=== PATIENT | male | born 1975 | race Caucasian/White ===

== ENCOUNTER 2020-04-18 09:06 | Emergency (ER) | payer BC, SELFPAY ==
[2020-04-18 09:16] VITALS: BP 143/104; PULSE 108; RESP 18; TEMP 36.9; O2SAT 98; BMI 34.8
[2020-04-18 09:33] VITALS: BP 137/103; PULSE 104; RESP 20; O2SAT 97
--- NOTE | 2020-04-18 09:37 | XR_ITS ---
WS: [id number] PORTABLE CHEST HISTORY: blood clot leg?, leg right COMPARISON: 12/26/2017 Lungs are clear and well expanded. No pleural effusion or pneumothorax. Cardiac size: Normal. Mediastinum/Aorta: Normal mediastinum. No osseous abnormality seen. XR/XR chest 1V portable [id number] IMPRESSION: Unremarkable portable chest.
--- NOTE | 2020-04-18 09:39 | ED_ITS ---
Documented by User: DAMIEN Grubbs 04/18/20 09:40 HPI - Extremity Problem General: Chief complaint: Extremity Problem,Nontraumatic Stated complaint: R LEG PAIN Time Seen by Provider: 04/18/20 09:08 History of Present Illness: HPI Narrative: Patient presents to the ER with swelling in his right leg started in his calf now moved him to his right thigh started 4 days ago. Had been sedentary around Covid quarantine now off quar antine tested positive couple weeks ago. Denies any other problems denies any medication usage MD Complaint: extremity swelling Onset (ago): day(s) Pain Consistency: constant Location: right Severity scale (1-10): 6 Quality: aching Radiation: proximal Relieving factors: nothing Exacerbating factors: range of motion and weight bearing Associated symptoms: Reports no associated symptoms; Deny chest pain, fever(s) or rash Context: other (Recent positive Covid) Review of Systems Const: Denies: fever(s), chills or body aches Eyes: Denies: change in vision or blurry vision ENMT: Denies: throat pain or nasal congestion Card: Denies: chest pain or dyspnea on exertion Resp: Denies: dyspnea, productive cough or non-productive cough GI: Denies: abdominal pain, nausea or vomiting : Denies: difficulty urinating Musc: Reports: extremity pain and extremity swelling (Right leg) Skin/Breast: Denies: rash Neuro: Denies: headache(s) Psych: Denies: anxiety or depression Allen/Lymph: Denies: easy bruising Physical Exam Const: COMMON NORMALS: no acute distress, average body habitus and patient oriented x3 HENMT: COMMON NORMALS: normocephalic HEAD & SCALP: normal to inspection and normocephalic FACE & SINUS: normal facial exam Eye: COMMON NORMALS: conjunctivae normal GENERAL EYE: appearance normal, both eyes and all related structures CONJUNCTIVA: Yes conjunctivae normal Neck/C-Spine: COMMON NORMALS: no JVD Chest: COMMONS NORMALS: normal inspection of the chest Resp: COMMON NORMALS: normal respiratory effort and clear to auscultation bilaterally AUSCULTATION: clear to auscultation bilaterally Cardio: COMMON NORMALS: no JVD, regular rate and regular rhythm RATE: regular rate RHYTHM: regular rhythm GI: COMMON NORMALS: Normal to inspection, nondistended, normoactive bowel sounds present Extremity: COMMON NORMALS: full ROM RIGHT LOWER EXTREMITY: Yes upper leg (Redness and swelling inner thigh extending all the way up to the groin area) a nd Yes lower leg (Redness and swelling positive Homans test) Neuro: COMMON NORMALS: patient oriented x3 Course Vital Signs: Vital signs: Vital Signs Temperature 97.8 F 04/18/20 13:11 Pulse Rate 75 04/18/20 13:11 Respiratory Rate 16 04/18/20 13:11 Blood Pressure 146/78 04/18/20 13:11 Pulse Oximetry 96 04/18/20 13:11 MDM - Extremity (Nontraumatic) Lab Data: Labs: Lab Results 04/18/20 04/18/20 04/18/20 Range/Units 09:45 09:45 09:45 WBC 6.8 (4.0-10.0) 10^3/ uL RBC 5.45 H (4.1-5.3) 10^6/u L Hgb 15.5 (11.7-16.6) g/dL Hct 48.5 (42.0-52.0) % MCV 89.0 (80-94) fL MCH 28.4 (28.0-34.0) pg MCHC 32.0 (30.0-36.0) g/dL RDW 12.5 (12.1-15.1) % Plt Count 280 (130-400) 10^3/c mm MPV 10.0 (7.4-10.4) fL Neut % (Auto) 84.0 % Lymph % (Auto) 5.7 % Pacific % (Auto) 8.7 % Eos % (Auto) 1.0 % Baso % (Auto) 0.3 % Neut # (Auto) 5.72 (1.8-7.7) 10^3/u L Lymph # (Auto) 0.4 L (0.8-4.8) 10^3/u L Pacific # (Auto) 0.6 (0.2-0.9) 10^3/u L Eos # (Auto) 0.1 (0.0-0.8) 10^3/u L Baso # (Auto) 0.0 (0.0-0.1) 10^3/u L Nucleated RBC % (a uto) 0 % Nucleated RBCs # 0.0 /100WBC PT 12.40 (12.1-14.9) SECO NDS INR 0.90 (0.8-1.2) Sodium 139 (136-145) mmol/L Potassium 4.3 (3.5-5.1) mmol/L Chloride 103 (98-107) mmol/L Carbon Dioxide 24 (22-29) mmol/L Anion Gap 16.3 (5-19) BUN 8 (6-20) mg/dL Creatinine 0.9 (0.7-1.2) mg/dL GFR Calculation 91.7 (90-130) mL/min Glucose 103 (65-115) mg/dL Calculated Osmolal ity 287 (285-295) mOsm/k g Lactate (0.5-2.2) mmol/L Calcium 9.2 (8.5-10.5) mg/dL Total Bilirubin 0.3 (0.15-1.2) mg/dL AST 20 (0-40) U/L ALT 22 (0-41) U/L Alkaline Phosphata se 78 (40-130) IU/L Troponin T Gen 5 n g/L (0-15) ng/L NT-Pro-B Natriuret Pep (0-125) pg/mL Total Protein 7.1 (6.6-8.7) g/dL Albumin 4.1 (3.5-5.2) g/dL Globulin 3.0 (1.3-4.6) g/dL 04/18/20 04/18/20 04/18/20 Range/Units 09:45 09:45 09:45 WBC (4.0-10.0) 10^3/ uL RBC (4.1-5.3) 10^6/u L Hgb (11.7-16.6) g/dL Hct (42.0-52.0) % MCV (80-94) fL MCH (28.0-34.0) pg MCHC (30.0-36.0) g/dL RDW (12.1-15.1) % Plt Count (130-400) 10^3/c mm MPV (7.4-10.4) fL Neut % (Auto) % Lymph % (Auto) % Pacific % (Auto) % Eos % (Auto) % Baso % (Auto) % Neut # (Auto) (1.8-7.7) 10^3/u L Lymph # (Auto) (0.8-4.8) 10^3/u L Pacific # (Auto) (0.2-0.9) 10^3/u L Eos # (Auto) (0.0-0.8) 10^3/u L Baso # (Auto) (0.0-0.1) 10^3/u L Nucleated RBC % (a uto) % Nucleated RBCs # /100WBC PT (12.1-14.9) SECO NDS INR (0.8-1.2) Sodium (136-145) mmol/L Potassium (3.5-5.1) mmol/L Chloride (98-107) mmol/L Carbon Dioxide (22-29) mmol/L Anion Gap (5-19) BUN (6-20) mg/dL Creatinine (0.7-1.2) mg/dL GFR Calculation (90-130) mL/min Glucose (65-115) mg/dL Calculated Osmolal ity (285-295) mOsm/k g Lactate 1.2 (0.5-2.2) mmol/L Calcium (8.5-10.5) mg/dL Total Bilirubin (0.15-1.2) mg/dL AST (0-40) U/L ALT (0-41) U/L Alkaline Phosphata se (40-130) IU/L Troponin T Gen 5 n g/L 6 (0-15) ng/L NT-Pro-B Natriuret Pep 20 (0-125) pg/mL Total Protein (6.6-8.7) g/dL Albumin (3.5-5.2) g/dL Globulin (1.3-4.6) g/dL Discharge Plan Discharge Patient Disposition: Home Clinical Impression: Superficial thrombophlebitis Qualifiers: Superficial thrombophlebitis-Involved body area: lower extremity Laterality: right Qualified Code(s): I80.01 - Phlebitis and thrombophlebitis of superficial vessels of right lower extremity Condition: Stable Prescriptions: New Eliquis DVT-PE Treat 30D Start 5 mg (74 tabs) tablets,dose pack See Rx Instructions .ROUTE .COMPLEX Qty: 74 RF: 0 Discharge Orders: Discharge Order (Routine); Ordered 04/18/20 Ordered By: Ying Mcguire Referrals: Abimael Graham MD [Physician] - 4-7 days Discharge Diet: Usual diet Discharge Activity: Limit activity as instructed Patient Instructions: Deep Venous Thrombosis (ED) Activity Restrictions/Additional Instructions: Please return to the ER immediately for any of the signs or symptoms listed on your discharge instruction sheets, worsening/changing of your symptoms, you are not getting better as quickly as expected, or for ANY other cause or concerns. Begin your Eliquis tonight at 6 PM as instructed. If you develop chest pain, shortness of breath, increased pain, fever or vomiting please return to the ER for recheck. Be certain to follow-up with Dr. Graham for recheck Tuesday of next week. Discharge Date/Time: 04/18/20 13:13 Sign Out Sign Out Data: Patient Sign Out occurred on 04/18/20 at 11:07. Patient's care was discussed, and care was transferred from to Ying Mcguire. Coding Level of Care Code ED Food Service Director for Chg Fwd Exam Comprehensive Documented by User: Ying Mcguire 04/18/20 22:42 HPI - Extremity Problem General: Chief complaint: Extremity Problem,Nontraumatic Stated complaint: R LEG PAIN Time Seen by Provider: 04/18/20 09:08 Course Vital Signs: Vital signs: Vital Signs Temperature 97.8 F 04/18/20 13:11 Pulse Rate 75 04/18/20 13:11 Respiratory Rate 16 04/18/20 13:11 Blood Pressure 146/78 04/18/20 13:11 Pulse Oximetry 96 04/18/20 13:11 MDM - Extremity (Nontraumatic) MDM Narrative: Medical decision making narrative: 1100 -patient's case endorsed to me from Ricky Greenwood APN. Please see his note for his history, physical exam and medical decision-making notes. Concern of DVT based upon ultrasound techs verbal report given to Mr. Greenwood. Patient is mildly tachycardic so we will proceed with evaluation for PE. 1256 -the case was reviewed with Drs. Garza and Santos. Both are in agreement as the patient has had Covid which can create hypercoagulable state, history of superficial venous thrombosis at the same site and the clot is about to spill into the deep venous system they agree the patient should be placed on anticoagulation. Patient received 4000 units of heparin here so after discussing with pharmacy they recommend starting Eliquis tonight at 6 PM. Hospital protocol started dose was initiated the patient understands he needs to take this as directed. We did review the signs and symptoms for which to return and he states he understands all these and will follow-up as directed return as needed. Lab Data: Attestation: I reviewed the patient's lab results. Labs: Lab Results 04/18/20 04/18/20 04/18/20 Range/Units 09:45 09:45 09:45 WBC 6.8 (4.0-10.0) 10^3/ uL RBC 5.45 H (4.1-5.3) 10^6/u L Hgb 15.5 (11.7-16.6) g/dL Hct 48.5 (42.0-52.0) % MCV 89.0 (80-94) fL MCH 28.4 (28.0-34.0) pg MCHC 32.0 (30.0-36.0) g/dL RDW 12.5 (12.1-15.1) % Plt Count 280 (130-400) 10^3/c mm MPV 10.0 (7.4-10.4) fL Neut % (Auto) 84.0 % Lymph % (Auto) 5.7 % Pacific % (Auto) 8.7 % Eos % (Auto) 1.0 % Baso % (Auto) 0.3 % Neut # (Auto) 5.72 (1.8-7.7) 10^3/u L Lymph # (Auto) 0.4 L (0.8-4.8) 10^3/u L Pacific # (Auto) 0.6 (0.2-0.9) 10^3/u L Eos # (Auto) 0.1 (0.0-0.8) 10^3/u L Baso # (Auto) 0.0 (0.0-0.1) 10^3/u L Nucleated RBC % (a uto) 0 % Nucleated RBCs # 0.0 /100WBC PT 12.40 (12.1-14.9) SECO NDS INR 0.90 (0.8-1.2) Sodium 139 (136-145) mmol/L Potassium 4.3 (3.5-5.1) mmol/L Chloride 103 (98-107) mmol/L Carbon Dioxide 24 (22-29) mmol/L Anion Gap 16.3 (5-19) BUN 8 (6-20) mg/dL Creatinine 0.9 (0.7-1.2) mg/dL GFR Calculation 91.7 (90-130) mL/min Glucose 103 (65-115) mg/dL Calculated Osmolal ity 287 (285-295) mOsm/k g Lactate (0.5-2.2) mmol/L Calcium 9.2 (8.5-10.5) mg/dL Total Bilirubin 0.3 (0.15-1.2) mg/dL AST 20 (0-40) U/L ALT 22 (0-41) U/L Alkaline Phosphata se 78 (40-130) IU/L Troponin T Gen 5 n g/L (0-15) ng/L NT-Pro-B Natriuret Pep (0-125) pg/mL Total Protein 7.1 (6.6-8.7) g/dL Albumin 4.1 (3.5-5.2) g/dL Globulin 3.0 (1.3-4.6) g/dL 04/18/20 04/18/20 04/18/20 Range/Units 09:45 09:45 09:45 WBC (4.0-10.0) 10^3/ uL RBC (4.1-5.3) 10^6/u L Hgb (11.7-16.6) g/dL Hct (42.0-52.0) % MCV (80-94) fL MCH (28.0-34.0) pg MCHC (30.0-36.0) g/dL RDW (12.1-15.1) % Plt Count (130-400) 10^3/c mm MPV (7.4-10.4) fL Neut % (Auto) % Lymph % (Auto) % Pacific % (Auto) % Eos % (Auto) % Baso % (Auto) % Neut # (Auto) (1.8-7.7) 10^3/u L Lymph # (Auto) (0.8-4.8) 10^3/u L Pacific # (Auto) (0.2-0.9) 10^3/u L Eos # (Auto) (0.0-0.8) 10^3/u L Baso # (Auto) (0.0-0.1) 10^3/u L Nucleated RBC % (a uto) % Nucleated RBCs # /100WBC PT (12.1-14.9) SECO NDS INR (0.8-1.2) Sodium (136-145) mmol/L Potassium (3.5-5.1) mmol/L Chloride (98-107) mmol/L Carbon Dioxide (22-29) mmol/L Anion Gap (5-19) BUN (6-20) mg/dL Creatinine (0.7-1.2) mg/dL GFR Calculation (90-130) mL/min Glucose (65-115) mg/dL Calculated Osmolal ity (285-295) mOsm/k g Lactate 1.2 (0.5-2.2) mmol/L Calcium (8.5-10.5) mg/dL Total Bilirubin (0.15-1.2) mg/dL AST (0-40) U/L ALT (0-41) U/L Alkaline Phosphata se (40-130) IU/L Troponin T Gen 5 n g/L 6 (0-15) ng/L NT-Pro-B Natriuret Pep 20 (0-125) pg/mL Total Protein (6.6-8.7) g/dL Albumin (3.5-5.2) g/dL Globulin (1.3-4.6) g/dL Imaging Data^: CXR: Attestation: I personally reviewed and interpreted this imaging study as follows: My impression: No acute cardiopulmonary findings. US Vascular: Radiologist's impression: [address] [address] Ultrasound Report Signed Patient: Teena Arceo #: [id number] : 1975Acct#:[id number] Age/Sex: 45 / MADM Date: 04/18/20 Loc: ERRoom/Bed: Attending Dr: Ordering Provider/Ordering MD: Nahomy Greenwood , SERVICENOW ADMINISTRATOR- Date of Service: 04/18/20 Procedure(s): [place] [id number] Accession Number(s): [id number] Report Number: [id number] Raudel Arceo Age: 45 Gender: M : 1975 Exam Date: 04/18/2020 10:32 Ordering Phys: Marvin GreenwoodP Technologist: Richard Al Exam Location: [facility] – [place] Indication: PAIN SWELLING HISTORY: Patient states he had covid a few weeks ago and was laid up in bed. He is usually a very active individual. PROCEDURES: Comparison:. 11/27/14. Venous duplex imaging was performed in only the right lower extremity. The following venous structures were evaluated: common femoral vein, profunda vein, proximal portion of the greater saphenous vein, superficial femoral vein, and the popliteal vein. In addition, the posterior tibial and peroneal trunk were evaluated. Serial compression, augmentation maneuvers, and spectral Doppler flow evaluation were performed. FINDINGS: Thrombus was noted throughout the entire length of the right GSV. Thrombus is partially contracted. The thrombus appears to be very close to entering into the right common femoral vein. No DVT on the right. CONCLUSIONS Acute and possibly subacute right lower extremity superficial vein thrombosis. No DVT. Dr. Patricia Lynn DO (Electronically Signed) Final Date: 18 April 2020 11:02 S EKG Data^: EKG 1: Attestation: I personally reviewed and interpreted this EKG as follows: EKG interpretation date: 04/18/20 EKG interpretation time: 11:35 Interpretation: Normal sinus rhythm with sinus arrhythmia at 78 beats a minute, normal axis, no blocks, normal intervals, no acute ST-T wave changes. Discharge Plan Discharge Patient Disposition: Home Clinical Impression: Superficial thrombophlebitis Qualifiers: Superficial thrombophlebitis-Involved body area: lower extremity Laterality: right Qualified Code(s): I80.01 - Phlebitis and thrombophlebitis of superficial vessels of right lower extremity Condition: Stable Prescriptions: New Eliquis DVT-PE Treat 30D Start 5 mg (74 tabs) tablets,dose pack See Rx Instructions .ROUTE .COMPLEX Qty: 74 RF: 0 Discharge Orders: Discharge Order (Routine); Ordered 04/18/20 Ordered By: Ying Mcguire Referrals: Abimael Graham MD [Physician] - 4-7 days Discharge Diet: Usual diet Discharge Activity: Limit activity as instructed Patient Instructions: Deep Venous Thrombosis (ED) Activity Restrictions/Additional Instructions: Please return to the ER immediately for any of the signs or symptoms listed on your discharge instruction sheets, worsening/changing of your symptoms, you are not getting better as quickly as expected, or for ANY other cause or concerns. Begin your Eliquis tonight at 6 PM as instructed. If you develop chest pain, shortness of breath, increased pain, fever or vomiting please return to the ER for recheck. Be certain to follow-up with Dr. Graham for recheck Tuesday of next week. Discharge Date/Time: 04/18/20 13:13 Sign Out Sign Out Data: Patient Sign Out occurred on 04/18/20 at 11:07. Patient's care was discussed, and care was transferred from to Ying Mcguire. Coding Level of Care Code ED Food Service Director for Julianna Fwhawa Exam Comprehensive
[2020-04-18] MEDS: sodium chloride 0.9% 1,000 ML 75 ML IV (09:51)
[2020-04-18 09:53] LABS: Basophils % 0.3 %; Eosinophils # 0.1 10^3/uL (0.0-0.8); Hematocrit 48.5 % (42.0-52.0); Hemoglobin 15.5 g/dL (11.7-16.6); Lymphocytes # 0.4 10^3/uL (0.8-4.8); Lymphocytes % 5.7 %; Mean Corpuscular Hemoglobin 28.4 pg (28.0-34.0); Monocytes # 0.6 10^3/uL (0.2-0.9); Monocytes % 8.7 %; Neutrophils # 5.72 10^3/uL (1.8-7.7); Nucleated Red Blood Cells % 0 %; Platelet Count 280 10^3/cmm (130-400); Red Blood Count 5.45 10^6/uL (4.1-5.3); Red Cell Distribution Width 12.5 % (12.1-15.1); White Blood Count 6.8 10^3/uL (4.0-10.0)
[2020-04-18 10:12] LABS: Lactate (Lactic Acid level) 1.2 mmol/L (0.5-2.2)
[2020-04-18 10:15] LABS: Alanine Aminotransferase 22 U/L (0-41); Albumin Level 4.1 g/dL (3.5-5.2); Alkaline Phosphatase 78 IU/L (40-130); Anion Gap 16.3 (5-19); Aspartate Amino Transferase 20 U/L (0-40); Blood Urea Nitrogen 8 mg/dL (6-20); Calcium 9.2 mg/dL (8.5-10.5); Carbon Dioxide 24 mmol/L (22-29); Chloride 103 mmol/L (98-107); Glomerular Filtration Rate 91.7 mL/min (90-130); Glucose 103 mg/dL (65-115); Osmolality Calculated 287 mOsm/kg (285-295); Potassium 4.3 mmol/L (3.5-5.1); Sodium 139 mmol/L (136-145); Total Bilirubin 0.3 mg/dL (0.15-1.2); Total Protein 7.1 g/dL (6.6-8.7)
[2020-04-18] MEDS: ketorolac 30 mg/mL INJ IVP (10:50)
[2020-04-18] MEDS: heparin 5,000 unit/mL INJ 1 mL 4000 UNIT IVP (10:55)
--- NOTE | 2020-04-18 11:01 | CT_ITS ---
WS: [id number] CT CHEST ANGIOGRAPHY WITH REFORMATS HISTORY: Tachycardia, positive for DVT TECHNIQUE: Contiguous axial images are obtained through the chest during arterial injection of intrav enous contrast. Images are reconstructed to evaluate the pulmonary arteries. MIP imaging also reviewe d. All CT scans at [facility] use at least one of these dose optimization techniques: aut omated exposure control; mA and/or kV adjustment per patient size (includes targeted exams where dose is matched to clinical indication); or iterative reconstruction. CONTRAST: Omnipaque 350; 95 mL IV. DLP: 628.79 mGy.cm COMPARISON: None available. Good opacification of the pulmonary arteries. No pulmonary emboli. Normal thoracic aorta. Normal size pulmonary artery. Normal size heart. No pericardial or pleural effusion. No pneumonia. No pulmonary nodule or mass. Mildly enlarged, indeterminate mediastinal and hilar lymph nodes. Probably reactive. The largest lymp h nodes measure up to 9 mm in the hilar regions. Mild gynecomastia. Hepatic steatosis. No adrenal mass. CT/CT angio chest PE protcl [id number] IMPRESSION: 1. No pulmonary embolism. 2. No pneumonia. 3. Indeterminate but likely reactive mediastinal and hilar lymphadenopathy.
--- NOTE | 2020-04-18 11:13 | ECG_ITS ---
[facility] Test Date: 2020-04-18 Pat Name: Raudel Arceo Department: Room: Gender: Male Cardiovascular Sonographer: : 1975 Requested By: Ying Pires Order Number: [id number] Mayberry MD: Salena Borrero M.D. Measurements Intervals [place] Rate: 78 P: 55 [place]: 158 QRS: 71 QRSD: 94 T: 61 QT: 372 QTc: 424 Interpretive Statements SINUS RHYTHM WITH SINUS ARRHYTHMIA Compared to ECG 12/26/2017 15:35:38 No significant changes Electronically Signed On 04-18-2020 17:56:56 CDT by Salena Borrero M.D. [email or web address] [email or web address].[email or web address]/store/[id number]
[2020-04-18 11:28] LABS: Troponin T (5th) Once 6 ng/L (0-15)
[2020-04-18 11:33] VITALS: BP 168/105; PULSE 95; RESP 18; O2SAT 96
[2020-04-18 11:35] LABS: NT Pro B Type Natriuretic Pept 20 pg/mL (0-125)
[2020-04-18] MEDS: iohexol 350 mg/mL 100 mL Btl IV (11:44)
[2020-04-18 13:11] VITALS: BP 146/78; PULSE 75; RESP 16; TEMP 36.6; O2SAT 96
== END 2020-04-18 13:13 | disposition home or self-care (01) ==
PROVIDERS: Nurse Practitioner Family; Emergency Provider Emergency Medicine
DX: I80.01 Phlebitis and thrombophlebitis of superficial vessels of right lower extremity (principal)
CPT/HCPCS: 12345; 71045; 71275; 80053; 83605; 83880; 84484; 85025; 85610; 93005; 93971; 96361; 96374; 96375; 99283; 99284; J1644; J1885; J7030; Q9967

== ENCOUNTER 2021-11-16 09:43 | Emergency (ER) | payer OTHER, SELFPAY ==
[2021-11-16 09:50] VITALS: BP 181/93; PULSE 98; RESP 22; O2SAT 97; BMI 39.7
--- NOTE | 2021-11-16 10:06 | USCV_ITS ---
Howes Alexkanu Age: 46 Gender: M : 1975 Exam Date: 11/16/2021 10:23 Ordering Phys: Raymond Longoria DO Technologist: Denise Rivers [place] [facility] [place]: History of PE and both legs are swelling HISTORY: Bilateral leg swelling PROCEDURES: The venous duplex Doppler examination of both lower extremities was performed in the standard fashion. The following venous structures were evaluated: common femoral vein, profunda vein, proximal portion of the greater saphenous vein, superficial femoral vein, and the popliteal vein. In addition, the posterior tibial and peroneal trunk were evaluated. Serial compression, augmentation maneuvers, and spectral Doppler flow evaluation were performed. FINDINGS: Normal 2-D Doppler and augmentation and compressibility throughout the lower extremity venous structures. Additional imaging through the proximal calf veins also reveals no thrombus. Limited evaluation of the greater saphenous vein is patent with no thrombus.. Suggestion of debris filled Ham's cyst in lt pop fossa CONCLUSIONS No evidence of right lower extremity DVT. No evidence of left lower extremity DVT. Left popliteal cyst measuring 1.8 x 2.6cm with internal debris Matheus Ritter MD (Electronically Signed) Final Date: 16 Nov 2021 12:50 S
--- NOTE | 2021-11-16 10:06 | XRR_ITS ---
PROCEDURE INFORMATION: Exam: XR Chest Exam date and time: 11/16/2021 10:15 AM Age: 46 years old Clinical indication: Angina pectoris; Patient HX: Chest pain, swelling TECHNIQUE: Imaging protocol: XR of the chest. Views: 1 view. COMPARISON: CR XR chest 1V portable [id number] 04/18/2020 9:38 AM FINDINGS: Lungs: Unremarkable. No consolidation. Pleural spaces: Unremarkable. No pleural effusion. No pneumothorax. Heart/Mediastinum: Unremarkable. No cardiomegaly. Bones/joints: Unremarkable. XR/XR chest 1V portable [id number] IMPRESSION: No acute findings.
--- NOTE | 2021-11-16 10:06 | ECG_ITS ---
[facility] Test Date: 2021-11-16 Pat Name: Raudel Arceo Department: Room: Gender: Male Clay Puddler: : 1975 Requested By: Raymond Stover Order Number: [id number] Shawanda MD: Salena Borrero M.D. Measurements Intervals [place] Rate: 93 P: 60 [place]: 154 QRS: 70 QRSD: 89 T: 62 QT: 337 QTc: 419 Interpretive Statements SINUS RHYTHM Compared to ECG 04/18/2020 11:35:33 Sinus arrhythmia no longer present Electronically Signed On 11-16-2021 17:37:18 CDT by Salena Borrero M.D. [email or web address].[employer]/store/Ov/[id number]
--- NOTE | 2021-11-16 10:43 | W.ED.CHESTPA ---
HPI - Chest Pain General: Chief Complaint: Chest Pain Stated Complaint: Chest pains sent over from dr Morrissey Seen by Provider: 11/16/21 09:52 Source: patient Mode of arrival: ambulatory Limitations: no limitations History of Present Illness: 46-year-old male presents emergency room complaining of chest pain leg swelling has had on and off for the last 2 weeks. He was seen by his primary care doctor last week started on Lasix clinically they did not feel at that point that he had a DVT. He read previously had a DVT and a PE was on anticoagulation for period time and then it was stopped. He is not currently on any. Patient relates that ever since he had the pulmonary emboli he has had some degree of chest discomfort with activity is worsening though in the last 2 weeks. MD complaint: chest pain Onset (ago): week(s) Timing of current episode: episodic Onset: during exertion Pain radiation: none Severity: moderate Quality: aching and heaviness Relieving factors: nothing Exacerbating factors: exertion Associated symptoms: Reports dyspnea and leg edema; Deny abdominal pain, diaphoresis, fever(s), nausea, palpitations, sense of impending doom, syncope or vomiting Treatment prior to arrival: none Review of Systems Const: Denies: fever(s) or diaphoresis ENMT: Denies: throat pain, ear or mastoid pain, nasal discharge or nasal congestion Card: Reports: chest pain; Denies: palpitations or syncope Resp: Reports: dyspnea; Denies: productive cough, non-productive cough or wheezing GI: Denies: abdominal pain, nausea or vomiting : Denies: flank pain, difficulty urinating, dysuria, urinary frequency or urinary urgency Skin/Breast: Denies: rash or pruritus [facility] ED PFSH: Medical History DVT (deep venous thrombosis) Pulmonary emboli Social History Smoking and tobacco status: never smoked Alcohol intake: unknown Physical Exam Const: COMMON NORMALS: no acute distress GENERAL APPEARANCE: cooperative and comfortable ORIENTATION/CONSCIOUSNESS: Yes awake, Yes oriented to person, Yes oriented to place and Yes oriented to time HENMT: COMMON NORMALS: normocephalic, atraumatic and hearing grossly normal bilaterally HEAD & SCALP: normocephalic and atraumatic Neck/C-Spine: COMMON NORMALS: no JVD Lymph: LYMPHATIC: no lymphadenopathy noted and no lymphedema noted Resp: COMMON NORMALS: normal respiratory effort, No retractions, No use of accessory muscles and clear to auscultation bilaterally AUSCULTATION: clear to auscultation bilaterally Cardio: COMMON NORMALS: no JVD, regular rate, regular rhythm and No murmurs present (Cardio) RATE: regular rate RHYTHM: regular rhythm GI: COMMON NORMALS: Soft to palpation and No hepatosplenomegaly present AUSCULTATION: Yes normoactive bowel sounds PALPATION: Yes Soft to palpation, No Tenderness to palpation present (GI), No Guarding due to palpation present (GI) and Yes No hepatosplenomegaly present Extremity: COMMON NORMALS: normal to inspection, capillary refill normal and no calf tenderness GENERAL: Yes edema (2+ edema lower extremities) Neuro: SENSORIUM/ORIENTATION: Yes oriented to person, Yes oriented to place and Yes oriented to time Skin: COMMON NORMALS: no rashes or lesions noted GENERAL SKIN EXAM: no rashes or lesions noted Course Vital Signs: Vital signs: Vital Signs Pulse Rate 84 11/16/21 11:14 Respiratory Rate 14 11/16/21 11:14 Blood Pressure 118/69 11/16/21 11:14 Pulse Oximetry 94 11/16/21 11:14 MDM - Chest Pain Medical Decision Making Venous duplex negative. No acute EKG changes and serial troponins are negative. VQ scan negative. Patient does have a left Ham's cyst but he has swelling in both legs. We will go and discharge patient home stop losartan add isosorbide mononitrate continue baby aspirin daily set up for an outpatient Lexiscan sestamibi stress test. Medical Records I reviewed the patient's medical records. Lab Data I reviewed the patient's lab results. : 11/16/21 10:34 11/16/21 10:34 Radiology Impressions Chest X-Ray 11/16/21 10:06 IMPRESSION: No acute findings. Pulmonary Perfusion Imaging 11/16/21 10:44 IMPRESSION: 1. Low probability for pulmonary embolus. Laboratory Results WBC 6.2 10^3/uL (4.0-10.0) 11/16/21 10:34 RBC 5.41 10^6/uL (4.1-5.3) H 11/16/21 10:34 Hgb 15.2 g/dL (11.7-16.6) 11/16/21 10:34 Hct 46.3 % (42.0-52.0) 11/16/21 10:34 MCV 85.6 fl (80-94) 11/16/21 10:34 MCH 28.1 pg (28.0-34.0) 11/16/21 10:34 MCHC 32.8 g/dL (30.0-36.0) 11/16/21 10:34 RDW 13.0 % (12.1-15.1) 11/16/21 10:34 Plt Count 307 10^3/cmm (130-400) 11/16/21 10:34 MPV 10.2 fL (7.4-10.4) 11/16/21 10:34 Neut % (Auto) 79.6 % 11/16/21 10:34 Lymph % (Auto) 6.7 % 11/16/21 10:34 [place] % (Auto) 10.8 % 11/16/21 10:34 Eos % (Auto) 2.1 % 11/16/21 10:34 Baso % (Auto) 0.5 % 11/16/21 10:34 Neut # (Auto) 4.96 10^3/uL (1.8-7.7) 11/16/21 10:34 Lymph # (Auto) 0.4 10^3/uL (0.8-4.8) L 11/16/21 10:34 [place] # (Auto) 0.7 10^3/uL (0.2-0.9) 11/16/21 10:34 Eos # (Auto) 0.1 10^3/uL (0.0-0.8) 11/16/21 10:34 Baso # (Auto) 0.0 10^3/uL (0.0-0.1) 11/16/21 10:34 Nucleated RBC % (auto) 0 % 11/16/21 10:34 Nucleated RBCs # 0.0 /100WBC 11/16/21 10:34 Sodium 139 mmol/L (136-145) 11/16/21 10:34 Potassium 4.2 mmol/L (3.5-5.1) 11/16/21 10:34 Chloride 101 mmol/L (98-107) 11/16/21 10:34 Carbon Dioxide 27 mmol/L (22-29) 11/16/21 10:34 Anion Gap 15.2 (5-19) 11/16/21 10:34 BUN 13 mg/dL (6-20) 11/16/21 10:34 Creatinine 1.0 mg/dL (0.7-1.2) 11/16/21 10:34 GFR Calculation 80.8 mL/min (90-130) L 11/16/21 10:34 Glucose 121 mg/dL (65-115) H 11/16/21 10:34 Calculated Osmolality 289 mOsm/kg (285-295) 11/16/21 10:34 Calcium 9.0 mg/dL (8.5-10.5) 11/16/21 10:34 Total Bilirubin 0.2 mg/dL (0.15-1.2) 11/16/21 10:34 AST 18 U/L (0-40) 11/16/21 10:34 ALT 21 U/L (0-41) 11/16/21 10:34 Alkaline Phosphatase 77 IU/L (40-130) 11/16/21 10:34 Troponin T Baseline 6 ng/L (0-15) 11/16/21 10:34 Troponin T 120 Minute 6.00 ng/L (0-15) 11/16/21 12:16 Delta Troponin T Not Reportable 11/16/21 12:16 Total Protein 7.3 g/dL (6.6-8.7) 11/16/21 10:34 Albumin 4.2 g/dL (3.5-5.2) 11/16/21 10:34 Globulin 3.1 g/dL (1.3-4.6) 11/16/21 10:34 Discharge Plan Discharge Patient Disposition: Home Clinical Impression: Atypical chest pain Condition: Stable Prescriptions: New isosorbide mononitrate 30 mg tablet extended release 24 hr 30 mg PO DAILY Qty: 30 0RF Discontinued losartan 50 mg tablet 50 mg PO QAM 0RF No Action multivitamin Tablet 1 tab PO QAM 0RF furosemide 40 mg tablet 40 mg PO QAM 0RF tizanidine 4 mg tablet 4 mg PO BID PRN (Reason: Muscle Spasm) 0RF Aspir-81 81 mg Tablet,Delayed Release (Dr/Ec) 81 mg PO QAM 0RF fluticasone propionate 50 mcg/actuation spray,suspension 2 spray INTRANASAL DAILY PRN (Reason: Allergy Symptoms) 0RF naproxen 500 mg tablet 500 mg PO BID 0RF Klor-Con M10 10 mEq tablet,ER particles/crystals 10 meq PO QAM 0RF Discharge Orders: Discharge ED (Routine); Ordered 11/16/21 Ordered By: Raymond Longoria Discharge Diet: Usual diet Discharge Activity: Limit activity as instructed Patient Instructions: Opioid Safety Activity Restrictions/Additional Instructions: Avoid strenuous activity. Stop losartan start isosorbide mononitrate and continue baby aspirin daily. Case management will call make arrangements for a outpatient stress test. Coding Level of Care Code ED Fruit And Vegetable Classer for Julianna Hare Exam Comprehensive
[2021-11-16 10:44] VITALS: BP 134/88; PULSE 87; RESP 15; O2SAT 95
--- NOTE | 2021-11-16 10:44 | NM_ITS ---
WS: [id number] NUCLEAR MEDICINE LUNG VENTILATION AND PERFUSION CLINICAL INFORMATION: History of PE, dyspnea chest pain TECHNIQUE: Ventilation/perfusion lung scan with 32.5 mCi technetium 99m DTPA. 4.6 mCi MAA COMPARISON: CTA April 18, 2020 and radiograph November 16, 2021 FINDINGS: Radiograph November 16, 2021 reviewed. Symmetric bilateral pulmonary perfusion. Slight patchy radiotracer deposition on the ventilatory imag es along the trachea. No perfusion or mismatched ventilation/perfusion defects. NM/NM pul vent and perfus* [id number] IMPRESSION: 1. Low probability for pulmonary embolus.
[2021-11-16 10:48] LABS: Basophils % 0.5 %; Eosinophils # 0.1 10^3/uL (0.0-0.8); Eosinophils % 2.1 %; Hematocrit 46.3 % (42.0-52.0); Hemoglobin 15.2 g/dL (11.7-16.6); Lymphocytes # 0.4 10^3/uL (0.8-4.8); Lymphocytes % 6.7 %; Mean Corpuscular HGB Conc 32.8 g/dL (30.0-36.0); Mean Corpuscular Hemoglobin 28.1 pg (28.0-34.0); Mean Corpuscular Volume 85.6 fl (80-94); Mean Platelet Volume 10.2 fL (7.4-10.4); Monocytes # 0.7 10^3/uL (0.2-0.9); Monocytes % 10.8 %; Neutrophils # 4.96 10^3/uL (1.8-7.7); Neutrophils % 79.6 %; Nucleated Red Blood Cells % 0 %; Platelet Count 307 10^3/cmm (130-400); Red Blood Count 5.41 10^6/uL (4.1-5.3); White Blood Count 6.2 10^3/uL (4.0-10.0)
[2021-11-16 11:10] LABS: Alanine Aminotransferase 21 U/L (0-41); Albumin Level 4.2 g/dL (3.5-5.2); Alkaline Phosphatase 77 IU/L (40-130); Blood Urea Nitrogen 13 mg/dL (6-20); Carbon Dioxide 27 mmol/L (22-29); Chloride 101 mmol/L (98-107); Globulin 3.1 g/dL (1.3-4.6); Glomerular Filtration Rate 80.8 mL/min (90-130); Glucose 121 mg/dL (65-115); Osmolality Calculated 289 mOsm/kg (285-295); Sodium 139 mmol/L (136-145); Total Bilirubin 0.2 mg/dL (0.15-1.2); Total Protein 7.3 g/dL (6.6-8.7)
[2021-11-16 11:11] LABS: Troponin(5th) Baseline 6 ng/L (0-15)
[2021-11-16 11:14] VITALS: BP 118/69; PULSE 84; RESP 14; O2SAT 94
[2021-11-16 11:14] LABS: Anion Gap 15.2 (5-19); Aspartate Amino Transferase 18 U/L (0-40); Potassium 4.2 mmol/L (3.5-5.1)
--- NOTE | 2021-11-16 12:06 | ECG_ITS ---
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 Measurements Intervals [place] Rate: 67 P: 45 VA: 150 QRS: 71 QRSD: 97 T: 69 QT: 379 QTc: 401 Interpretive Statements SINUS RHYTHM Compared to ECG 11/16/2021 10:04:46 No significant changes Electronically Signed On 11-16-2021 17:41:28 CDT by Salena Borrero M.D. [id number]
--- NOTE | 2021-11-24 10:07 | DCPLANNER ---
Addendum entered by Mai Romero 12/21/21 06:10: Patient had a stress test scheduled for 12.17.21 - patient did attend stress test. Original Note: intermediate manager had message to schedule an outpatient stress test for patient. intermediate manager confirmed that patient wanted to have test scheduled and that patient sees Dr. Graham for primary care. intermediate manager faxed signed order to centralized scheduling, who will call patient with appointment information.
== END 2021-11-16 13:31 | disposition home or self-care (01) ==
PROVIDERS: Emergency Provider Family Medicine
DX: R07.89 Other chest pain (principal); M71.22 Synovial cyst of popliteal space [Baker], left knee; M79.89 Other specified soft tissue disorders; R06.00 Dyspnea, unspecified; Z86.711 Personal history of pulmonary embolism; Z86.718 Personal history of other venous thrombosis and embolism; Z79.82 Long term (current) use of aspirin
CPT/HCPCS: 71045; 78014; 80053; 84484; 85025; 93005; 93970; 99285; A9540; A9567

== ENCOUNTER 2021-12-17 06:17 | Outpatient (CLI) | payer OTHER, SELFPAY ==
--- NOTE | 2021-12-17 06:37 | ECG_ITS ---
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 Interpretive Statements NAME OF STUDY: LEXISCAN SESTAMIBI STRESS TEST INDICATION: [Chest Pain, ] Procedure: At the baseline, the blood pressure was 143/76mmHg with a heart rate of 89 bpm. The electrocardiogram showed normal sinus rhythm, normal axis with normal ST and T's. The Lexiscan was infused over a period of 20 seconds. A total of 0.4 mg of Lexiscan was infused. The stress phase was continued for a total of 5 minutes. Heart rate was at the end of stress phase was 93 bpm and a blood pressure of 130/83 mmHg. The EKG at the peak infusion revealed normal sinus rhythm with no significant ST-T wave changes. Sestamibi was injected 20 seconds after the Lexiscan infusion. Blood pressure at the end of recovery phase was 123/81 mmHg with a heart rate of 88 bpm. Conclusion: 1. Normal EKG response to Lexiscan infusion 2. No Lexiscan induced chest pain or cardiac arrhythmia. 3. Normal blood pressure and heart rate response. 4. Sestamibi/sestamibi perfusion scan pending; see separate report. Electronically Signed On 12-17-2021 11:43:46 CDT by Valeriano Trujillo M.D. [id number]
--- NOTE | 2021-12-17 06:38 | NMCV_ITS ---
NM shaggy perf SPECT r/s* [id number] Raudel Arceo Age: 46 Gender: M : 1975 Exam Date: 12/17/2021 07:41 Ordering Phys: Raymond Longoria DO Technologist: BRENT Donis Exam Location: [facility] Indications: CHEST PAIN STRESS TEST [facility] for [facility] IMAGE PROTOCOL Rest/Stress 1 Lexiscan Day Radiopharmaceutical Dose (mCi) Administration Site Administered by Rest: Tc-99m 11.0 IV BRENT Moreland Sestamibi Stress:Tc-99m 32.7 IV BRENT Donis Sestamijorge Rest: 17-Dec-2021 60 Discovery 630 Stress: 17-Dec-2021 30 Discovery 630 0.4mg Lexiscan. Images obtained in supine and prone position. SPECT RESULTS Technical Quality: Excellent Raw Data Analysis: Normal Image Corrections: No attenuation or motion correction applied Summed Stress Score: 4 Summed Rest Score: 3 Summed Difference Score: 1 PERFUSION FINDINGS There is a mostly fixed perfusion defect noted in the lateral wall. This is consistent with small to moderate sized prior infarct with small area of kathleen- infarct ischemia in the left circumflex artery territory. FUNCTIONAL RESULTS (calculated via Gated SPECT) Stress Image LV EF (%): 74 Stress EDV (mL):87 TID: 0.84 Stress ESV (mL):23 FUNCTIONAL FINDINGS: There is normal left ventricular systolic function. IMPRESSIONS 1. Abnormal myocardial perfusion imaging with small to moderate sized infarct noted in the left circumflex artery territory with minimal area of kathleen-infarct ischemia 2. LV systolic function is normal Valeriano Trujillo MD (Electronically Signed) Final Date: 17 December 2021 11:32 S
[2021-12-17 06:50] VITALS: BMI 39.7
[2021-12-17] MEDS: regadenoson 0.4 Mg/5 ml Syringe IVP (08:08)
[2021-12-17 08:20] VITALS: BP 124/80; PULSE 91
== END 2021-12-17 06:18 | disposition home or self-care (01) ==
LOC: CDL 06:18
PROVIDERS: PCP Family Medicine; Visit Provider Family Medicine
DX: R07.9 Chest pain, unspecified (principal); R06.02 Shortness of breath
CPT/HCPCS: 78452; 93017; A9500; J2785

== ENCOUNTER 2022-03-10 20:00 | Outpatient (CLI) | payer OTHER, SELFPAY | END 2022-03-10 20:01 | disposition home or self-care (01) | LOC: SLEEP 03-11 07:52 | PROVIDERS: PCP Family Medicine; Visit Provider Family Medicine | DX: G47.10 Hypersomnia, unspecified (principal); R06.83 Snoring; R53.83 Other fatigue; G47.33 Obstructive sleep apnea (adult) (pediatric) | CPT/HCPCS: 95810 ==

== ENCOUNTER → 2022-03-17 13:25 | Outpatient (BNVA) | payer OTHER, SELFPAY | PROVIDERS: PCP Family Medicine; Referring Provider Family Medicine; Visit Provider Internal Medicine | DX: I50.9 Heart failure, unspecified (principal); M79.89 Other specified soft tissue disorders; I82.409 Acute embolism and thrombosis of unspecified deep veins of unspecified lower extremity; R06.09 Other forms of dyspnea | CPT/HCPCS: 80048; 83880 ==

== ENCOUNTER 2022-05-11 06:48 | Outpatient (CLI) | payer OTHER, SELFPAY ==
--- NOTE | 2022-05-11 07:00 | USCV_ITS ---
BethpageRaudel Age: 47 Gender: M : 1975 Exam Date: 05/11/2022 07:12 Ordering Phys: Valeriano Trujillo M.D ([email or web address]) Technologist: [place] [facility] [facility] [place]ication: Pedal edema BP: 120 / 70 HR: 63 Rhythm: Sinus Technical Quality: Adequate MEASUREMENTS (Male / Female) Normal Values 2D ECHO LV Diastolic Diameter PLAX 4.2 cm 4.2 - 5.9 / 3.9 - 5.3 cm LV Systolic Diameter PLAX 2.7 cm IVS Diastolic Thickness 1.0 cm 0.6 - 1.0 / 0.6 - 0.9 cm IVS Systolic Thickness 1.2 cm LVPW Diastolic Thickness 1.2 cm 0.6 - 1.0 / 0.6 - 0.9 cm LVPW Systolic Thickness 1.3 cm LVOT Diameter 2.0 cm LV Ejection Fraction 2D Teich 64.6 % LV Ejection Fraction MOD 2C 73.1 % LV Ejection Fraction 2C AL 73.6 % LA Diameter 3.3 cm M-MODE Aortic Annulus Diameter 3.3 cm LA Ao Ratio MM 1.0 MV E Point Septal Separation 0.6 cm DOPPLER AV Peak Velocity 120.0 cm/s LVOT Peak Velocity 71.0 cm/s AV Area Cont Eq vti 1.7 cm squared AV Area Cont Eq pk 1.9 cm squared MV Area PHT 5.0 cm squared Mitral E to A Ratio 1.1 MV E' Velocity 41.5 cm/s Mitral E to MV E' Ratio 8.6 Mitral E to LV E' Lateral Ratio 7.9 Mitral E to LV E' Septal Ratio 9.4 TR Peak Velocity 144.0 cm/s TR Peak Gradient 8.3 mmHg TV Peak E Velocity 84.0 cm/s RV Acceleration Time 0.1 s FINDINGS Left Ventricle Normal left ventricular size, systolic function and wall thickness, with no diagnostic regional wall motion abnormalities. Left ventricular ejection fraction is estimated at 70 %. Normal diastolic function. Right Ventricle Normal right ventricular size and systolic function. Right ventricular systolic pressure 16 mmHg. Right Atrium Normal right atrial size. Left Atrium Normal left atrial size. Mitral Valve Structurally normal mitral valve. No mitral valve stenosis. No significant mitral valve regurgitation. Aortic Valve Aortic valve not well visualized. No aortic valve stenosis. No aortic valve regurgitation. Tricuspid Valve Structurally normal tricuspid valve. Pulmonic Valve Pulmonic valve not well visualized. No pulmonary valve stenosis. Pericardium No pericardial effusion. Aorta Normal size aortic root and proximal ascending aorta. IVC Inferior vena cava not visualized. CONCLUSIONS 1. Normal left ventricular size, systolic function and wall thickness, with no diagnostic regional wall motion abnormalities. Left ventricular ejection fraction is estimated at 70 %. Normal diastolic function. 2. No prior similar studies to compare. Salena Borrero MD (Electronically Signed) Final Date: 15 May 2022 20:28 S
--- NOTE | 2022-05-11 09:30 | USCV_ITS ---
SummerlandChrisdanielkanu Age: 47 Gender: M : 1975 Exam Date: 05/11/2022 08:17 Ordering Phys: Valeriano Trujillo M.D ([email or web address]) Technologist: [place] [facility] [place]: HISTORY: PROCEDURES: Bilateral duplex Venous Insufficiency study of the Deep and Superficial systems was carried out according to normal protocol with the patient in supine positon for deep system and dependent position for the superficial system. FINDINGS: All deep veins demonstrated compressibility without evidence of intraluminal thrombus or increased echogenicity. Spectral analysis of Doppler signals demonstrates normal response to compression maneuvers indicating patency without obstruction. Reflux determinations were made with the patient in the dependent position, the weight being on the contralateral leg. CONCLUSIONS 1. No evidence of DVT in the above-mentioned identifiable veins. 2. Significant reflux of greater than 500 ms (ranging anywhere from 3597-7003 msecs) was noted in the greater saphenous vein on the right side involving the proximal, mid, distal and below-knee segments. These venous segments were found to be greater than 1 cm deep from the surface except the below-knee segment. The venous diameter was ranging from 0.44 to 0.76 cm in diameter. 3. On the left side significant venous reflux of greater than 500 ms was noted at the saphenofemoral junction. The rest of the vein was found to have no significant reflux. 4. No significant reflux were noted on the deep veins Dr Salazar Rahman MD [facility] (Electronically Signed) Final Date: 12 May 2022 18:27 S
== END 2022-05-11 06:49 | disposition home or self-care (01) ==
LOC: RAD 06:48
PROVIDERS: PCP Family Medicine; Visit Provider Internal Medicine
DX: M79.89 Other specified soft tissue disorders (principal); R07.89 Other chest pain; R60.9 Edema, unspecified; I50.9 Heart failure, unspecified; R93.89 Abnormal findings on diagnostic imaging of other specified body structures
CPT/HCPCS: 93306; 93970

== ENCOUNTER 2022-05-18 20:00 | Outpatient (CLI) | payer OTHER, SELFPAY | END 2022-05-18 20:01 | disposition home or self-care (01) | LOC: SLEEP 05-19 07:28 | PROVIDERS: PCP Family Medicine; Visit Provider Family Medicine | DX: G47.33 Obstructive sleep apnea (adult) (pediatric) (principal) | CPT/HCPCS: 95811 ==

== ENCOUNTER 2023-10-24 06:00 | Outpatient (RCR) | payer OTHER, SELFPAY | END 2023-11-01 23:59 | disposition home or self-care (01) | LOC: SPT 06:00 | PROVIDERS: Visit Provider Family Medicine | DX: I89.0 Lymphedema, not elsewhere classified (principal) | CPT/HCPCS: 97140; 97161 ==

== ENCOUNTER 2023-11-02 06:00 | Outpatient (RCR) | payer OTHER, SELFPAY | END 2023-12-02 23:59 | disposition home or self-care (01) | LOC: SPT 06:00 | PROVIDERS: Visit Provider Family Medicine | DX: I89.0 Lymphedema, not elsewhere classified (principal) | CPT/HCPCS: 97140 ==

== ENCOUNTER 2023-12-03 06:00 | Outpatient (RCR) | payer OTHER, SELFPAY | END 2023-12-22 23:59 | disposition home or self-care (01) | LOC: SPT 06:00 | PROVIDERS: Visit Provider Family Medicine | DX: I89.0 Lymphedema, not elsewhere classified (principal) | CPT/HCPCS: 97140 ==

== ENCOUNTER 2024-03-02 16:04 | Outpatient (CLI) | payer OTHER, SELFPAY ==
--- NOTE | 2024-03-02 16:17 | USCV_ITS ---
Raudel Arceo Age: 49 Gender: M : 1975 Exam Date: 03/02/2024 16:28 Ordering Phys: Adam Erazo DO Technologist: CT Exam Location: [facility] [place] Indication: swelling Risk Factors: Previous Vascular Surgery: RIGHT LEFT BP: 139.0 / 81.00 BP: 144.0/ 91.00 0 0 Waveform Velocity (cm/s) Velocity (cm/s) Waveform Triphasic 115.5 Iliac Prox 84.0 Triphasic Triphasic 106.8 Iliac Mid 84.5 Triphasic Triphasic 127.7 Iliac Distal 87.9 Triphasic Triphasic 150.0 CHECKER CASHIER 83.0 Triphasic Triphasic 107.0 SFA Prox 88.0 Triphasic Triphasic 105.0 SFA Mid 78.0 Triphasic Triphasic SFA Dist Triphasic 83.0 54.0 Triphasic 68.0 POP 57.0 Triphasic Triphasic 114.0 INFORMATION LEAD 79.0 Triphasic Triphasic 118.0 DPA 58.0 Triphasic 1.0 WALDEMAR 1.0 FINDINGS Resting WALDEMAR 1.0 bilaterally. Triphasic arterial Doppler waveforms bilaterally. Normal Doppler flow velocities bilaterally Minimal plaques in the common iliac and femoral arteries bilaterally CONCLUSIONS Minimal plaques in the common iliac and femoral arteries bilaterally. Normal resting ABIs and arterial Doppler waveforms suggesting no significant arterial obstruction Dr Salazar Rahman MD [facility] (Electronically Signed) Final Date: 03 March 2024 00:16 S
== END 2024-03-02 16:05 | disposition home or self-care (01) ==
LOC: RAD 16:10
PROVIDERS: Visit Provider Electrodiagnostic Medicine
DX: I73.9 Peripheral vascular disease, unspecified (principal)
CPT/HCPCS: 93925

== ENCOUNTER 2024-12-11 10:17 | Outpatient (CLI) | payer OTHER, SELFPAY ==
--- NOTE | 2024-12-11 10:18 | MR_ITS ---
WS: [id number] MRI LUMBAR SPINE NONCONTRAST TECHNIQUE: Sagittal T1, T2 and STIR imaging. Axial T1 and T2 imaging. CLINICAL INFORMATION: SADDLE ANESTHESIA COMPARISON: None. FINDINGS: Mild lumbar curve. No acute compression. Shallow protrusions lower thoracic spine at T11-T12 and T12-L1. L1-L2: Mild annular bulging. Mild narrowing of the thecal sac. Mild facet arthropathy. Foramen are patent. L2-L3: Mild annular bulging with mild narrowing of the thecal sac. Mild facet arthropathy. Foramen are patent. L3-L4: Mild annular bulging with mild narrowing of the thecal sac. Mild facet arthropathy. Small RIGHT foraminal protrusion with mild RIGHT foraminal narrowing. L4-L5: Mild annular bulging with impingement of the LEFT subarticular recess and traversing LEFT L5 nerve root. Moderate facet arthropathy. Mild LEFT foraminal narrowing. L5-S1: Mild annular bulging. Moderate facet arthropathy. Spinal canal and foramen are patent. Visualized pelvic bony structures: Normal. Paravertebral soft tissues: Normal. MR/MR lumbar spine wo con* [id number] IMPRESSION: 1. Mild narrowing of the thecal sac L1-L3 due to slight annular bulging and pr ominent epidural fat. 2. Disc bulging L4-5 with impingement on the traversing LEFT L5 nerve root in the subarticular recess. Mild LEFT L4-5 foraminal narrowing. 3. Small RIGHT foraminal protrusion L3-4 with mild RIGHT foraminal narrowing. 4. Moderate facet arthropathy L3-L5.
== END 2024-12-11 10:18 | disposition home or self-care (01) ==
LOC: RAD 10:17
PROVIDERS: PCP Family Medicine; Visit Provider Family Medicine
DX: R20.0 Anesthesia of skin (principal); M48.061 Spinal stenosis, lumbar region without neurogenic claudication; M51.369 Other intervertebral disc degeneration, lumbar region without mention of lumbar back pain or lower extremity pain; M51.26 Other intervertebral disc displacement, lumbar region; M47.896 Other spondylosis, lumbar region; M43.8X6 Other specified deforming dorsopathies, lumbar region; M51.379 Other intervertebral disc degeneration, lumbosacral region without mention of lumbar back pain or lower extremity pain; M47.897 Other spondylosis, lumbosacral region
CPT/HCPCS: 72148

== ENCOUNTER → 2024-12-27 13:39 | Outpatient (BNVA) | payer OTHER, SELFPAY | PROVIDERS: PCP Family Medicine; Visit Provider Orthopaedic Surgery | DX: M48.062 Spinal stenosis, lumbar region with neurogenic claudication (principal); M25.551 Pain in right hip | CPT/HCPCS: 72110; 73523 ==

== ENCOUNTER 2025-01-25 08:28 | Outpatient (RCR) | payer OTHER, SELFPAY | END 2025-01-31 23:59 | disposition home or self-care (01) | LOC: SPT 08:28 | PROVIDERS: PCP Family Medicine; Visit Provider Orthopaedic Surgery | DX: M54.50 Low back pain, unspecified (principal); M54.51 Vertebrogenic low back pain | CPT/HCPCS: 97110; 97161 ==

== ENCOUNTER 2025-02-01 05:00 | Outpatient (RCR) | payer OTHER, SELFPAY | END 2025-03-03 23:59 | disposition home or self-care (01) | LOC: SPT 05:00 | PROVIDERS: PCP Family Medicine; Visit Provider Orthopaedic Surgery | DX: M54.50 Low back pain, unspecified (principal); M54.51 Vertebrogenic low back pain; G89.29 Other chronic pain | CPT/HCPCS: 97032; 97110; G0283 ==

== ENCOUNTER 2025-03-04 05:00 | Outpatient (RCR) | payer OTHER, SELFPAY | END 2025-04-02 23:59 | disposition home or self-care (01) | LOC: SPT 05:00 | PROVIDERS: PCP Family Medicine; Visit Provider Orthopaedic Surgery | DX: M54.50 Low back pain, unspecified (principal); M25.559 Pain in unspecified hip; G89.29 Other chronic pain | CPT/HCPCS: 97110; 97150 ==